=== PATIENT | male | born 1995 | race Caucasian/White ===

== ENCOUNTER 2017-11-07 23:06 | Emergency (ER) | payer OTHER ==
[~2017-11-07] VITALS: Ht 190.5 cm; Wt 113.4 kg
[2017-11-07] MEDS ORDERED: LEXAPRO 10 MG T10 M2 PO (23:34)
[2017-11-07] MEDS ORDERED: METHYLPHENIDATE40 MG PO (23:35)
== END 2017-11-08 00:09 | disposition home or self-care (01) ==
LOC: ER 23:06
DX: S61.211A Laceration without foreign body of left index finger without damage to nail, initial encounter (principal); Z88.1 Allergy status to other antibiotic agents; W26.0XXA Contact with knife, initial encounter; Y93.G3 Activity, cooking and baking; Y92.89 Other specified places as the place of occurrence of the external cause; Y99.8 Other external cause status